=== PATIENT | female | born 1965 ===

== ENCOUNTER 2017-07-12 05:09 | Emergency (ER) | payer OTHER ==
[2017-07-12 05:10] VITALS: BMI 31.5
[2017-07-12 05:46] VITALS: RESP 18; O2SAT 99
[2017-07-12] MEDS ORDERED: Sodium Chloride 0.9% 1,000 ML IV STA (06:06)
[2017-07-12 06:25] LABS: BASO # 0.1 K/uL (0.0-0.2); BASO % 0.5 % (0.0-2.0); EOS # 0.1 K/uL (0.0-0.7); EOS % 0.6 % (0.0-4.0); HEMOGLOBIN 14.2 g/dL (12.0-16.0); LYMPH # 0.6 K/uL (1.0-4.3); LYMPH % 4.7 % (20.0-40.0); MEAN CELL VOLUME 85.9 fl (81.0-99.0); MEAN CORPUSCULAR HEMOGLOBIN 29.2 pg (27.0-31.0); MEAN PLATELET VOLUME 9.3 fl (7.2-11.7); MONO # 0.7 K/uL (0.0-0.8); MONO % 5.4 % (0.0-10.0); NEUT % 88.8 % (50.0-75.0); NRBC % 0.1 % (0.0-0.0); PLATELET COUNT 199 K/uL (130-400); RBC 4.87 Mil/uL (3.80-5.20); RED CELL DISTRIBUTION WIDTH 12.8 % (11.5-14.5); WHITE BLOOD COUNT 12.4 K/uL (4.8-10.8)
[2017-07-12 06:32] LABS: ALBUMIN 4.4 g/dL (3.5-5.0); ALT/SGPT 88 U/L (9-52); AST/SGOT 47 U/L (14-36); BLOOD UREA NITROGEN 17 mg/dl (7-17); CALCIUM 9.7 mg/dL (8.4-10.2); GFR AFRICAN-AMERICAN > 60; GFR NON-AFRICAN AMERICAN > 60
--- NOTE | 2017-07-12 06:56 | ED PDOC ---
HPI: Influenza Time Seen by Provider: 07/12/17 05:48 Chief Complaint: Syncope Chief Complaint (Provider): Flu-like Symptoms History Per: Patient Exam Limitations: no limitations Onset/Duration Of Symptoms: Days (x 2) Symptoms include: bodyaches, sore throat Additional complaint(s):: 52 years old female with history of hypertension presents to the ED with complaints of bodyache, weakness and sore throat associated with chills onset 2 days. Patient reports she woke up at 3 am with sever nausea and dizziness. She admits taking flu vaccine in winter. PMD: non provided Past Medical History Reviewed: Historical Data, Nursing Documentation, Vital Signs Vital Signs: Last Vital Signs Temp 99.0 F 07/12/17 05:30 Pulse 85 07/12/17 05:30 Resp 18 07/12/17 05:30 BP 121/82 07/12/17 05:30 Pulse Ox 99 07/12/17 05:30 - Medical History PMH: Cardia Arrhythmia, HTN - Surgical History Surgical History: No Surg Hx - Family History Family History: States: Unknown Family Hx - Social History Current smoker - smoking cessation education provided: No Alcohol: None Drugs: Denies - Immunization History Hx Tetanus Toxoid Vaccination: No Hx Influenza Vaccination: No Hx Pneumococcal Vaccination: No - Home Medications Home Medications: Ambulatory Orders Medication Instructions Recorded Metoprolol Succinate 100 mg PO DAILY 09/22/14 Meclizine [Antivert] 25 mg PO TID PRN #20 tab 02/03/15 Aspirin [Aspirin Chewable] 81 mg PO DAILY 06/27/15 Oseltamivir [Tamiflu] 75 mg PO BID #10 cap 07/12/17 - Allergies Allergies/Adverse Reactions: Allergies Allergy/AdvReac Type Severity Reaction Status Date / Time No Known Allergies Allergy Verified 06/27/15 11:58 Review of Systems ROS Statement: Except As Marked, All Systems Reviewed And Found Negative Constitutional: Positive for: Chills ENT: Positive for: Throat Pain Gastrointestinal: Positive for: Nausea Neurological: Positive for: Weakness, Dizziness Physical Exam - Reviewed Nursing Documentation Reviewed: Yes Vital Signs Reviewed: Yes - Physical Exam Appears: Positive for: Non-toxic, No Acute Distress Head Exam: Positive for: ATRAUMATIC, NORMOCEPHALIC Skin: Positive for: Normal Color, Warm, Dry Eye Exam: Positive for: Normal appearance, EOMI, PERRL ENT: Positive for: Pharyngeal Erythema Neck: Positive for: Normal, Painless ROM, Supple Cardiovascular/Chest: Positive for: Regular Rate, Rhythm. Negative for: Murmur Respiratory: Positive for: Normal Breath Sounds. Negative for: Respiratory Distress Gastrointestinal/Abdominal: Positive for: Normal Exam, Soft. Negative for: Tenderness Back: Positive for: Normal Inspection Extremity: Positive for: Normal ROM. Negative for: Pedal Edema, Deformity Neurologic/Psych: Positive for: Alert, Oriented Medical Decision Making Medical Decision Making: Time: 604 Initial Impression: Flue-like symptoms. Initial Plan: --CMP --Urine --Urine Dipstick --CBC --NaCl 1,000 ml --Toradol 15 mg --[place] --Influenza A B --Rapid Strep Group Antigen Time: 657 Labs reviewed and show positive for flu; Tamiflu ordered Patie nt reports improvement and is stable for discharge home Patient is stable for discharge. Dx Influenza Scribe Attestation: Documented by Sandra Mcgregor, acting as a scribe for Jon Adame MD. Provider Scribe Attestation: All medical record entries made by the Scribe were at my direction and personally dictated by me. I have reviewed the chart and agree that the record accurately reflects my personal performance of the history, physical exam, medical decision making, and the department course for this patient. I have also personally directed, reviewed, and agree with the discharge instructions and disposition. - Laboratory Results Result Diagrams: 07/12/17 06:21 07/12/17 06:21 - ECG O2 Sat by Pulse Oximetry: 99 (RA) Pulse Ox Interpretation: Normal Disposition - Clinical Impression Clinical Impression: Influenza - Patient ED Disposition Is Patient to be Admitted: No - Disposition Disposition: Routine/Home Disposition Time: 06:58 Condition: STABLE Prescriptions: Oseltamivir [Tamiflu] 75 mg PO BID #10 cap Instructions: Flu Forms: [employer] (B[place]i) Print Language: GUYANESE
[2017-07-12 07:49] VITALS: BP 135/83; PULSE 93; TEMP 98.3
[2017-07-12 08:34] LABS: BANDS 2 % (0-2); EOSINOPHIL 1 % (0-7); LYMPHOCYTE 5 % (20-50); MONOCYTE 5 % (0-10); NEUTROPHIL 86 % (42-75); PLATELET ESTIMATE NORMAL (NORMAL); REACTIVE LYMPHOCYTES 1 % (0-0); TOTAL CELLS COUNTED 100
== END 2017-07-12 07:52 | disposition home or self-care (01) ==
LOC: H.ER 05:09
DX: J09.X2 Influenza due to identified novel influenza A virus with other respiratory manifestations (principal); I10 Essential (primary) hypertension; Z79.82 Long term (current) use of aspirin
CPT/HCPCS: 80053; 85025; 86308; 87070; 87430; 87804; 96361; 96374; 99283; J1885; J7040